=== PATIENT | male | born 1940 | race Caucasian/White ===

== ENCOUNTER 2019-01-03 17:43 | Emergency (ER) | payer OTHER ==
[~2019-01-03] VITALS: Ht 167.6 cm; Wt 79.4 kg
[2019-01-03] MEDS ORDERED: ASPIR 8181 MG PO (17:57)
[2019-01-03] MEDS ORDERED: NORVASC5 MG PO (17:58)
[2019-01-03] MEDS ORDERED: LISINOPRIL40 MG PO (17:58)
[2019-01-03] MEDS ORDERED: HYDROCHLOROTH12.5 M1 PO (17:58)
[2019-01-03] MEDS ORDERED: CLONIDINE0.1 PO (17:59)
[2019-01-03] MEDS ORDERED: HYDRALAZINE 2525 MG PO (17:59)
[2019-01-03] MEDS ORDERED: VALIUM5 MG PO (18:00)
[2019-01-03] MEDS ORDERED: SIMVASTATIN10 MG PO (18:00)
[2019-01-03] MEDS ORDERED: VALIUM2 MG PO (18:01)
[2019-01-03 18:54] VITALS: BP 187/63
== END 2019-01-03 19:30 | disposition home or self-care (01) ==
LOC: ER 17:43
DX: S01.01XA Laceration without foreign body of scalp, initial encounter (principal); I10 Essential (primary) hypertension; Z88.2 Allergy status to sulfonamides; Z88.8 Allergy status to other drugs, medicaments and biological substances; W01.198A Fall on same level from slipping, tripping and stumbling with subsequent striking against other object, initial encounter; Y93.89 Activity, other specified; Y92.89 Other specified places as the place of occurrence of the external cause; Y99.8 Other external cause status